=== PATIENT | male | born 1970 | race Caucasian/White ===

== ENCOUNTER 2018-07-29 07:28 | Day surgery (SDC) | payer OTHER, SELFPAY ==
[2018-07-29 08:01] VITALS: BP 143/93; PULSE 68; RESP 16; TEMP 35.8; O2SAT 98; BMI 33.9
[2018-07-29] MEDS: SODIUM CHLORIDE 0.9% 1,000 ML 200 ML IV (08:15)
--- NOTE | 2018-07-29 09:24 | PM.HP.1 ---
History of Present Illness Date Patient Seen: 07/29/18 Time Patient Seen: 09:18 Chief complaint: [id number] Narrative: Patient's gentleman who added ulcer found at a prior EGD. He is here to confirm healing. He was not particularly symptomatic at the time of his ulcer treatment. Patient History Medical History Anxiety (Chronic) Diabetes mellitus type 2 in obese (Chronic) Hypertension, essential (Chronic) Sleep apnea (Chronic) Family & Social History Social History: household members spouse Meds Home Medications Medication Instructions Recorded Confirmed Type amlodipine 10 mg PO QDAY #0 tab 09/10/16 07/29/18 History sitagliptin [Januvia] 50 mg PO HS #0 tab 09/10/16 07/29/18 History aspirin 162 mg PO QDAY #0 09/09/17 07/29/18 History atorvastatin [Lipitor] 20 mg PO HS #0 09/09/17 07/29/18 History losartan [Cozaar] 25 mg PO DAILY #0 02/25/18 07/29/18 History metformin [Fortamet] 1,000 mg PO BID #0 02/25/18 07/29/18 History indomethacin 25 mg PO BID 07/29/18 07/29/18 History pantoprazole [Protonix] 40 mg PO DAILY 07/29/18 07/29/18 History Allergies Allergy/AdvReac Type Severity Reaction Status Date / Time Morpholine Analogues AdvReac Intermediate ITCHING Verified 07/29/18 07:56 No Known Allergies Allergy Uncoded 03/09/18 12:12 Review of Systems Review of Systems All systems reviewed & are unremarkable except as noted in HPI and below Exam Vital Signs (past 8 hours): - 07/29/18 08:01 Temperature 96.5 F L Pulse Rate 68 Respiratory Rate 16 Blood Pressure 143/93 H Pulse Oximetry 98 Oxygen Delivery Method Room Air Narrative Exam Narrative: Operative no apparent distress. Eyes are nonicteric. Lungs are clear heart regular rate and rhythm without murmur gallop. abdomen is soft nontender without mass. Patient is alert and oriented. Assessment & Plan Plan: Assessment/Plan Narrative: For EGD. I have discussed the procedure including risks of bleeding perforation. He appears to understand wishes to proceed
[2018-07-29] MEDS: TETRACAINE/BENZOCAINE/BUTAMBEN (CETACAINE) BOTTLE 1 SPRAY TOP (09:26)
[2018-07-29] MEDS: LIDOCAINE 4% SOLN 50 ML 20 ML TOP (09:27)
--- NOTE | 2018-07-29 09:28 | PM.PREOP ---
Pre-operative Note Interval Note Pre-op Check: Yes History & Physical exam performed today by Physician Changes: No ASA Class (for procedural sedation): II
[2018-07-29] MEDS: MIDAZOLAM 5 MG/5 ML VIAL IV (09:35)
[2018-07-29] MEDS: fentaNYL 250 MCG/5 ML INJ IV (09:36)
[2018-07-29 09:43] VITALS: BP 133/87; PULSE 64; RESP 16; TEMP 36.3; O2SAT 94
--- NOTE | 2018-07-29 09:48 | PM.OP.ENDO ---
Operative Date/Time/Diagnoses Date of procedure: 07/29/18 Time of procedure: 09:40 Pre-op diagnosis: History of gastric ulcers and knee Cyndi Post-op diagnosis: same (Ulcers found on last scope are healed. Has new superficial lesions near the pyloric channel.) Procedure & Clinicians Study performed: EGD Same procedure as scheduled: Yes Surgeon: Robert Quijano Procedure Notes SCOAP/Timeout: None Procedure in detail: The patient had topical anesthetic applied to oropharynx. She was placed in left lateral decubitus position and underwent IV sedation directed by the surgeon consisting of fentanyl and Versed. A bite block was inserted and the scope was advanced through it into the esophagus. The esophagus was unremarkable. GE junction was noted at 40 cm from the incisors. The patient was noted to have a hiatal hernia.. The stomach insufflated well. There were no lesions seen in the body or at the incisura. In the gastric antrum near the pylorus there were some superficial ulcerations. The pyloric channel was [patent]. The duodenum was unremarkable to the 4th part except I noticed a tiny amount of fresh blood in the duodenum but did not correlate it with any lesion that could be seen.. The scope was brought back into the stomach and retroflexed. The proximal stomach was normal except for a hiatal hernia. There were no ulcers in this region as had been seen on his last scope.. The scope was straightened and brought out through the esophagus again. No lesions were seen. The scope was removed and the patient tolerated the procedure well. Scope withdrawal time: Not applicable Sedation minutes: 7 Findings: gastric ulcer Recommendations: Continue medication(s) Follow up: as needed Disposition: PACU
[2018-07-29 09:50] VITALS: BP 131/89; PULSE 70; RESP 16; O2SAT 96
--- NOTE | 2018-07-29 09:51 | SUR.PHASEII ---
bypassed pacu, pt awake, swallow intact speech intact. at bedside- supportive.
--- NOTE | 2018-07-29 10:17 | SUR.PHASEII ---
dr araya to bedside, spoke to pt and his , instructed to take pantoprazole twice aday, all voiced an understanding.
== END 2018-07-29 10:10 | disposition home or self-care (01) ==
PROVIDERS: Visit Provider Specialist
PROC: 0DJ08ZZ Inspection of Upper Intestinal Tract, Via Natural or Artificial Opening Endoscopic (ICD-10-PCS; CPT 43235; principal; 2018-07-29 08:45)
DX: K25.9 Gastric ulcer, unspecified as acute or chronic, without hemorrhage or perforation (principal); K44.9 Diaphragmatic hernia without obstruction or gangrene; F41.9 Anxiety disorder, unspecified; E11.9 Type 2 diabetes mellitus without complications; E66.9 Obesity, unspecified; I10 Essential (primary) hypertension; G47.33 Obstructive sleep apnea (adult) (pediatric); Z79.84 Long term (current) use of oral hypoglycemic drugs
CPT/HCPCS: 43235; 99152; J2250; J3010

== ENCOUNTER 2018-11-12 11:34 | Emergency (ER) | payer OTHER, SELFPAY ==
[2018-11-12 11:42] VITALS: BP 140/94; PULSE 81; RESP 18; TEMP 37; O2SAT 98; BMI 33.9
--- NOTE | 2018-11-12 11:55 | PC.NURSE ---
described pain as needle in the joints.
[2018-11-12 12:58] VITALS: BP 133/97; PULSE 83; RESP 17; O2SAT 98
[2018-11-12 13:13] LABS: Add Manual Diff / Slide Review NO; Basophils Percent Auto 0.8 % (0-2); Eosinophils Percent Auto 1.9 % (2-4); Hematocrit 38.1 % (41-53); Hemoglobin 13.1 g/dL (13.5-17.5); Lymphocytes Percent Auto 13.1 % (25-40); Mean Corpuscular HGB Conc 34.5 % (30-36); Mean Corpuscular Hemoglobin 26.8 PG (26-34); Mean Corpuscular Volume 77.8 fL (80-100); Monocytes Percent Auto 11.3 % (3-14); Neutrophils Absolute Auto 7300 /uL (1500-7000); Neutrophils Percent Auto 72.9 % (50-75); Platelet Count 292 X10^3/uL (150-400); Red Cell Distribution Width 14.4 % (11.6-14.8)
[2018-11-12 13:27] LABS: Alanine Aminotransferase 93 IU/L (21-72); Albumin 4.6 g/dL (3.5-5.0); Albumin Globulin Ratio 1.4 (1.0-2.8); Alkaline Phosphatase 96 U/L (38-126); Aspartate Aminotransferase 59 IU/L (17-59); Bilirubin Total 0.5 mg/dL (0.2-1.3); Blood Urea Nitrogen 12 mg/dL (9-20); Calcium 9.5 mg/dL (8.4-10.2); Carbon Dioxide 31 mmol/L (22-32); Chloride 96 mmol/L (98-107); Estimated Glomerular Filt Rate > 60.0 mL/min (>60); Globulin 3.3 g/dL (1.7-4.1); Glucose 166 mg/dL (70-100); HEMOLYSIS < 15 (0-50); Sodium 143 mmol/L (137-145); Total Protein 7.9 g/dL (6.3-8.2); Uric Acid 6.2 mg/dL (3.5-8.5)
--- NOTE | 2018-11-12 14:03 | ED_ITS ---
HPI - Extremity Injury (Lower) <DOROTA Mares - Last Filed: 11/12/18 22:23> General Chief Complaint: Extremity Injury, Lower Stated Complaint: STATES GOUT ATTACK Time Seen by Provider: 11/12/18 12:10 Source: patient Mode of arrival: ambulatory Limitations: no limitations History of Present Illness HPI Narrative: 48-year-old male with history of gout and is a nonsmoker here for complaint of gout attack to his bilateral ankles over the past couple of weeks. He was treated for this by his primary care provider. He was placed on a course of prednisone which she has already use along with indomethacin and colchicine. patient states that the swelling was improved underneath the prednisone and the pain was improving however since he has been off the prednisone for about a week now he reports that the pain is starting to increase again. He denies any trauma to the area. No fevers or chills. he denies any other concerns or complaints at this time. Related Data Home Medications Medication Instructions Recorded Confirmed amlodipine 10 mg PO QDAY #0 tab 09/10/16 07/29/18 sitagliptin [Januvia] 50 mg PO HS #0 tab 09/10/16 07/29/18 aspirin 162 mg PO QDAY #0 09/09/17 07/29/18 atorvastatin [Lipitor] 20 mg PO HS #0 09/09/17 07/29/18 losartan [Cozaar] 25 mg PO DAILY #0 02/25/18 07/29/18 metformin [Fortamet] 1,000 mg PO BID #0 02/25/18 07/29/18 indomethacin 25 mg PO BID 07/29/18 07/29/18 pantoprazole [Protonix] 40 mg PO DAILY 07/29/18 07/29/18 Previous Rx's Medication Instructions Recorded colchicine See Label Instructions .ROUTE 11/12/18 .COMPLEX #20 tab prednisone See Label Instructions PO PER PKG 11/12/18 DIR #21 each probenecid 500 mg PO BID #60 tab 11/12/18 Allergies Allergy/AdvReac Type Severity Reaction Status Date / Time Morpholine Analogues AdvReac Intermediate ITCHING Verified 07/29/18 07:56 No Known Allergies Allergy Uncoded 03/09/18 12:12 Review of Systems <DOROTA Mares - Last Filed: 11/12/18 22:23> Constitutional Denies chills, Denies fever(s), Denies lethargy and Denies weakness Eyes Denies change in vision, Denies eye discharge, Denies irritation and Denies loss of vision ENT Ears, Nose, Mouth, and Throat: Denies change in voice, Denies neck pain and Denies sore throat Cardiovascular Denies chest pain, Denies irregular heart rhythm, Denies lightheadedness, Denies palpitations, Denies dyspnea, Denies dyspnea on exertion and Denies orthopnea Respiratory Denies cough, Denies dyspnea, Denies dyspnea on exertion and Denies wheezing Gastrointestinal Gastrointestinal: Denies abdominal pain, Denies change in bowel habits, Denies diarrhea, Denies nausea and Denies vomiting Genitourinary Denies hematuria, Denies flank pain, Denies urinary incontinence and Denies urinary urgency Musculoskeletal Denies neck pain Comments: Bilateral ankle pain Integumentary/Breasts Denies pruritus, Denies erythema, Denies rash and Denies wounds Neurologic Denies confusion, Denies loss of vision and Denies weakness Psychiatric Denies anxiety, Denies confusion, Denies depression, Denies homicidal ideation and Denies suicidal ideation Endocrine Denies palpitations Hematologic/Lymphatic Denies easy bruising Allergic/Immunologic Denies wheezing Exam <DOROTA Mares - Last Filed: 11/12/18 22:23> Initial Vital Signs Initial Vital Signs: Vital Signs Temperature 98.6 F 11/12/18 11:42 Pulse Rate 81 11/12/18 11:42 Respiratory Rate 18 11/12/18 11:42 Blood Pressure 140/94 H 11/12/18 11:42 Pulse Oximetry 98 11/12/18 11:42 Const General: cooperative and well developed Nutritional Appearance: well nourished Orientation: alert, awake, oriented x3 and not confused [facility] Mouth: oral mucosae normal and moist mucous membranes Eyes Conjunctivae: conjunctivae normal Sclera: sclerae normal Pupils: PERRL EOM: EOM intact bilaterally Resp Effort & Inspection: normal respiratory effort, able to speak in complete sentences, no respiratory distress and no use of accessory muscles Auscultation: clear to auscultation bilaterally, no rales, no rhonchi and no wheezes Cardio Rate: regular rate Rhythm: regular rhythm Heart Sounds: no click, no gallops, no murmurs and no rubs Pulses: normal peripheral pulses Skin General: no rashes or lesions noted, No jaundice and No petechiae Neuro General: alert, oriented x3, gait normal and no focal motor deficits Speech: speech normal Extrem Other: no significant erythema or swelling into a bilateral ankles. Distal sensation is intact bilaterally. Distal pulses are intact bilaterally. Full range of motion. Tenderness to palpation to bilateral ankles. <Jamila Faria DO - Last Filed: 11/13/18 08:04> Initial Vital Signs Initial Vital Signs: Vital Signs Temperature 98.6 F 11/12/18 11:42 Pulse Rate 81 11/12/18 11:42 Respiratory Rate 18 11/12/18 11:42 Blood Pressure 140/94 H 11/12/18 11:42 Pulse Oximetry 98 11/12/18 11:42 Course <DOROTA Mares - Last Filed: 11/12/18 22:23> Orders Ordered: ED Orders 11/12/18 13:00 Comprehensive Metabolic Panel Stat Uric Acid Stat 11/12/18 13:05 Complete Blood Count AUTO DIFF Stat Vital Signs - 8 hr 11/12/18 11:42 11/12/18 12:58 Temperature 98.6 F Pulse Rate 81 83 Respiratory Rate 18 17 Blood Pressure 140/94 H Blood Pressure [Right Arm] 133/97 H Pulse Oximetry 98 98 <DO Jose Cervantes Last Filed: 11/13/18 08:04> Orders Ordered: ED Orders 11/12/18 13:00 Comprehensive Metabolic Panel Stat Uric Acid Stat 11/12/18 13:05 Complete Blood Count AUTO DIFF Stat Vital Signs - 8 hr 11/12/18 11:42 11/12/18 12:58 Temperature 98.6 F Pulse Rate 81 83 Respiratory Rate 18 17 Blood Pressure 140/94 H Blood Pressure [Right Arm] 133/97 H Pulse Oximetry 98 98 MDM - Extremity Injury (Lower) <DOROTA Mares - Last Filed: 11/12/18 22:23> Lab Data Result diagrams: 11/12/18 13:05 11/12/18 13:00 Lab Results 11/12/18 11/12/18 Range/Units 13:00 13:05 WBC 10.0 (4.5-11.0) X10^3/uL RBC 4.90 (4.5-5.9) X10^6/uL Hgb 13.1 L (13.5-17.5) g/dL Hct 38.1 L (41-53) % MCV 77.8 L (80-100) fL MCH 26.8 (26-34) PG MCHC 34.5 (30-36) % RDW 14.4 (11.6-14.8) % Plt Count 292 (150-400) X10^3/uL Neut % (Auto) 72.9 (50-75) % Lymph % (Auto) 13.1 L (25-40) % Bent % (Auto) 11.3 (3-14) % Eos % (Auto) 1.9 L (2-4) % Baso % (Auto) 0.8 (0-2) % Neut # (Auto) 7300 H (1054-8522) /uL Sodium 143 (137-145) mmol/L Potassium 4.0 (3.4-5.1) mmol/L Chloride 96 L (98-107) mmol/L Carbon Dioxide 31 (22-32) mmol/L BUN 12 (9-20) mg/dL Creatinine 0.80 (0.66-1.25) mg/dL Estimated GFR > 60.0 (>60) mL/min BUN/Creatinine Ratio 15.0 (6-22) Glucose 166 H (70-100) mg/dL Uric Acid 6.2 (3.5-8.5) mg/dL Calcium 9.5 (8.4-10.2) mg/dL Total Bilirubin 0.5 (0.2-1.3) mg/dL AST 59 (17-59) IU/L ALT 93 H (21-72) IU/L Alkaline Phosphatase 96 (38-126) U/L Total Protein 7.9 (6.3-8.2) g/dL Albumin 4.6 (3.5-5.0) g/dL Globulin 3.3 (1.7-4.1) g/dL Albumin/Globulin Ratio 1.4 (1.0-2.8) MDM Narrative Medical decision making narrative: laboratory results today were unremarkable. Refill of prednisone was provided in taper does use as directed. Continue to use the indomethacin and colchicine as prescribed. refill of a probe enicid is provided as well. Follow up with her primary care provider this week. For any worsening symptoms return to the emergency room. Plenty of fluids. Gout diet as instructed <Jamila Faria, DO - Last Filed: 11/13/18 08:04> Lab Data Lab Results 11/12/18 11/12/18 Range/Units 13:00 13:05 WBC 10.0 (4.5-11.0) X10^3/uL RBC 4.90 (4.5-5.9) X10^6/uL Hgb 13.1 L (13.5-17.5) g/dL Hct 38.1 L (41-53) % MCV 77.8 L (80-100) fL MCH 26.8 (26-34) PG MCHC 34.5 (30-36) % RDW 14.4 (11.6-14.8) % Plt Count 292 (150-400) X10^3/uL Neut % (Auto) 72.9 (50-75) % Lymph % (Auto) 13.1 L (25-40) % Bent % (Auto) 11.3 (3-14) % Eos % (Auto) 1.9 L (2-4) % Baso % (Auto) 0.8 (0-2) % Neut # (Auto) 7300 H (1738-4047) /uL Sodium 143 (137-145) mmol/L Potassium 4.0 (3.4-5.1) mmol/L Chloride 96 L (98-107) mmol/L Carbon Dioxide 31 (22-32) mmol/L BUN 12 (9-20) mg/dL Creatinine 0.80 (0.66-1.25) mg/dL Estimated GFR > 60.0 (>60) mL/min BUN/Creatinine Ratio 15.0 (6-22) Glucose 166 H (70-100) mg/dL Uric Acid 6.2 (3.5-8.5) mg/dL Calcium 9.5 (8.4-10.2) mg/dL Total Bilirubin 0.5 (0.2-1.3) mg/dL AST 59 (17-59) IU/L ALT 93 H (21-72) IU/L Alkaline Phosphatase 96 (38-126) U/L Total Protein 7.9 (6.3-8.2) g/dL Albumin 4.6 (3.5-5.0) g/dL Globulin 3.3 (1.7-4.1) g/dL Albumin/Globulin Ratio 1.4 (1.0-2.8) Discharge Plan Departure Patient Disposition: Home Clinical Impression: Gout Discharge Date/Time: 11/12/18 14:11 Interventions: ED Discharge Assessment Last Done: 11/12/18 14:11 Instructions: DI for Gout Activity Restrictions/Additional Instructions: laboratory results today were unremarkable. Refill of prednisone was provided in taper does use as directed. Continue to use the indomethacin and colchicine as prescribed. refill of a probe enicid is provided as well. Follow up with her primary care provider this week. For any worsening symptoms return to the emergency room. Plenty of fluids. Gout diet as instructed Prescriptions: New prednisone 10 mg tablets,dose pack See Label Instructions PO PER PKG DIR Qty: 21 RF: 0 probenecid 500 mg tablet 500 mg PO BID Qty: 60 RF: 0 colchicine 0.6 mg tablet See Label Instructions .ROUTE .COMPLEX Qty: 20 RF: 0 No Action amlodipine 10 MG tablet 10 mg PO QDAY Qty: 0 RF: 0 sitagliptin [Januvia] 50 MG tablet 50 mg PO HS Qty: 0 RF: 0 atorvastatin [Lipitor] 20 MG tablet 20 mg PO HS Qty: 0 RF: 0 aspirin 81 MG tablet,chewable 162 mg PO QDAY Qty: 0 RF: 0 metformin [Fortamet] 1,000 MG tablet extended release 24hr 1,000 mg PO BID Qty: 0 RF: 0 losartan [Cozaar] 25 MG tablet 25 mg PO DAILY Qty: 0 RF: 0 indomethacin 25 mg Capsule 25 mg PO BID RF: 0 pantoprazole [Protonix] 40 MG tablet,delayed release (DR/EC) 40 mg PO DAILY RF: 0 [facility]: [facility] [Provider Group] <Jamila Faria, - Last Filed: 11/13/18 08:04> Cosign ED Attending Javed Attestation: I was immediately available in the department for consultation. Documentation has been reviewed. I agree with assessment and plan.
[2018-11-12 14:11] VITALS: BP 141/104; PULSE 86; O2SAT 98
== END 2018-11-12 14:11 | disposition home or self-care (01) ==
PROVIDERS: Emergency Provider Nurse Practitioner Family
DX: M10.9 Gout, unspecified (principal)
CPT/HCPCS: 36415; 80053; 84550; 85025; 99282; 99283

== ENCOUNTER → 2019-03-02 09:22 | Outpatient (CLI) | payer OTHER, SELFPAY ==
--- NOTE | 2019-03-02 | DI.MRI.S_ITS ---
PROCEDURE: MR ANKLE LT WO/W CON INDICATIONS: Arthropathy, unspecified TECHNIQUE: Noncontrast sagittal T1 spin echo and T2 fast spin echo with fat saturation, axial proton density fast spin echo and T2 fast spin echo with fat saturation, axial T1 spin echo with fat saturation, coronal T1 spin echo and T2 fast spin echo with fat saturation through the ankle/hindfoot. Post-contrast axial, coronal, and sagittal T1 spin echo with fat saturation through the ankle/hindfoot. COMPARISON: [facility], CR, XR ANKLE 3+ VIEWS BILATERAL, 02/13/2019, 11:28. FINDINGS: Image quality: Excellent. Bones and joints: No suspicious osseous enhancement. No fracture or dislocation. Osteophytic changes are noted involving tibiotalar joint and subtalar joint. No hindfoot coalitions. 6 mm osteochondral lesion involving weight-bearing portion of medial talar dome is seen with surrounding edema. No pathologic joint effusions. Well-defined plantar calcaneal enthesophyte is seen. Medial structures: Moderate amount of fluid distending the flexor tendon sheaths particularly surrounding posterior tibial tendon is seen, suggestive of low-grade tenosynovitis. No evidence of flexor tendon rupture.. The posterior tibial neurovascular bundle appears normal within the tarsal tunnel, without extrinsic mass effect. The deep layer (anterior and posterior tibiotalar ligaments) of deltoid ligament is thickened and suggestive of ligament sprain. The superficial layer (tibionavicular, tibiospring, and tibiocalcaneal ligaments) of the deltoid ligament appear normal. The spring ligament components (superomedial calcaneonavicular, medioplantar oblique calcaneonavicular, and inferoplantar longitudinal ligaments) are intact. Lateral structures: There is moderate grade partial-thickness tear involving anterior talofibular ligament. The calcaneofibular, and posterior talofibular ligaments appear intact. More superiorly, the anterior and posterior tibiofibular ligaments appear intact, as is the intermalleolar ligament. The tibiofibular syndesmosis is normal in width at 2 mm or less. The peroneus longus and brevis tendons demonstrate normal location and morphology. Adjacent bony peroneal tubercle and retrotrochlear prominence are normal in size. The sinus tarsi demonstrates normal fatty signal, without edema, fibrosis, or cyst formation. Visualized sinus tarsi components (cervical ligament, interosseous talocalcaneal ligament, roots of the inferior extensor retinaculum) appear normal. The calcaneonavicular and calcaneocuboid components of the bifurcate ligament appear intact. The dorsal calcaneocuboid ligament appears intact. Anterior structures: The tibialis anterior, extensor hallucis longus, and extensor digitorum longus tendons appear intact. The dorsal talonavicular ligament appears intact. Posterior and plantar structures: Achilles tendon is intact. Medial and lateral bands of the plantar fascia are of normal thickness. No abductor digiti quinti muscle atrophy to suggest Ellison neuropathy. IMPRESSION: 1. Low-grade tenosynovitis involving the flexor tendons particularly involving posterior tibial tendon. No evidence of ankle tendon tear. 2. Sprain/low-grade partial-thickness tear involving deep fibers of deltoid ligament. Moderate grade partial-thickness involving anterior talofibular ligament. 3. 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 No fracture or dislocation. 6 mm osteochondral lesion involving weight-bearing portion of medial talar dome. 4. No area of abnormal contrast enhancement. Dictated by: Winston Alfonso M.D. on 03/02/2019 at 11:34 Approved by: Winston Alfonso M.D. on 03/02/2019 at 11:58
== END ==
PROVIDERS: PCP Family Medicine; Visit Provider Internal Medicine Rheumatology
DX: S93.422A Sprain of deltoid ligament of left ankle, initial encounter (principal); S93.492A Sprain of other ligament of left ankle, initial encounter; M19.072 Primary osteoarthritis, left ankle and foot; M65.862 Other synovitis and tenosynovitis, left lower leg
CPT/HCPCS: 73723